=== PATIENT | male | born 1950 | race Caucasian/White ===

== ENCOUNTER 2021-01-15 19:04 | Inpatient (IN) | payer MEDICARE, OTHER ==
[~2021-01-15] VITALS: Ht 177.8 cm; Wt 70.7 kg
[2021-01-15] MEDS ORDERED: GABAPENTIN400 MG PO (20:58)
[2021-01-15] MEDS ORDERED: PROPRANOLOL HCL80 MG PO (20:59)
[2021-01-15] MEDS ORDERED: ZESTRIL 40 MG T40 MG PO (20:59)
[2021-01-15] MEDS ORDERED: AMLODIPINE BESYL5 MG PO (21:00)
[2021-01-15] MEDS ORDERED: OMEPRAZOLE40 MG PO (21:00)
[2021-01-15] MEDS ORDERED: LEVEMIR FL100 UNIT/1 SC ×2 (21:02→21:03)
[2021-01-15] MEDS ORDERED: HYDROCODON-ACE1 EAC2 PO (21:04)
[2021-01-15 22:32] LABS: HEMOGLOBIN 11.6 gm/dl (14.0-17.5); RED BLOOD COUNT 3.76 M/UL (4.20-5.50); WHITE BLOOD COUNT 6.4 K/UL (4.5-11.0)
[2021-01-16 19:46] LABS: ACINETOBACTER BAUMANNII Not Detected (Negative); CANDIDA ALBICANS Not Detected (Negative); CANDIDA KRUSEI Not Detected (Negative); CANDIDA TROPICALIS Not Detected (Negative); ENTEROCOCCUS Not Detected (Negative); ESCHERICHIA COLI Not Detected (Negative); HAEMOPHILUS INFLUENZAE Not Detected (Negative); KLEBSIELLA OXYTOCA Not Detected (Negative); KLEBSIELLA PNEUMONIAE Not Detected (Negative); KPC-CARBAPENEM-RESISTANCE GENE Not Detected (Negative); PROTEUS Not Detected (Negative); PSEUDOMONAS AERUGINOSA Not Detected (Negative); SERRATIA MARCESANS Not Detected (Negative); STAPHYLOCOCCUS AUREUS Not Detected (Negative); STREP AGALACTIAE (GROUP B) Not Detected (Negative); STREP PYOGENES (GROUP A) Not Detected (Negative); STREPTOCOCCUS Not Detected (Negative); vanA/B (VANCOMYCIN RESIST GENE Not Detected (Negative)
[2021-01-16 21:12] LABS: STAPHYLOCOCCUS DETECTED (Negative); mecA (METHICILLIN RESIST GENE DETECTED (Negative)
[2021-01-17 05:30] LABS: BUN/CREATININE RATIO 27 (0-10)
[2021-01-17 09:00] LABS: HEMOGLOBIN 11.7 gm/dl (14.0-17.5); RED BLOOD COUNT 3.84 M/UL (4.20-5.50)
[2021-01-18 05:29] LABS: BUN/CREATININE RATIO 22 (0-10)
[2021-01-18 08:13] LABS: ANTISTREPTOLYSIN O AB 35.2 IU/mL (0.0-200.0); COMPLEMENT C3, SERUM 112 mg/dL (82-167); COMPLEMENT C4, SERUM 23 mg/dL (12-38)
[2021-01-18 09:13] LABS: HBSAG SCREEN Negative (Negative); HEP B CORE AB, TOT Negative (Negative); HEP C VIRUS AB 0.2 (0.0-0.9)
[2021-01-19 03:12] LABS: HEMOGLOBIN 11.2 gm/dl (14.0-17.5); RED BLOOD COUNT 3.74 M/UL (4.20-5.50)
[2021-01-19 03:14] LABS: WHITE BLOOD COUNT 7.7 K/UL (4.5-11.0)
[2021-01-19 11:53] LABS: BUN/CREATININE RATIO 18 (0-10)
[2021-01-19 12:10] LABS: ANTI-DSDNA ANTIBODIES <1 IU/mL (0-9)
[2021-01-20 05:29] LABS: BUN/CREATININE RATIO 16 (0-10)
[2021-01-20 11:11] LABS: ATYPICAL PANCA <1:20 titer (Neg:<1:20); CYTOPLASMIC (C-ANCA) <1:20 titer (Neg:<1:20); PERINUCLEAR (P-ANCA) <1:20 titer (Neg:<1:20)
[2021-01-20 15:11] LABS: A/G RATIO 0.9 (0.7-1.7); ALBUMIN 3.3 g/dL (2.9-4.4); ALPHA-1-GLOBULIN 0.4 g/dL (0.0-0.4); ALPHA-2-GLOBULIN 1.1 g/dL (0.4-1.0); GAMMA GLOBULIN 1.6 g/dL (0.4-1.8); GLOBULIN, TOTAL 4.1 g/dL (2.2-3.9); IMMUNOGLOBULIN A, QN, SERUM 462 mg/dL (61-437); IMMUNOGLOBULIN G, QN, SERUM 1376 mg/dL (603-1613); IMMUNOGLOBULIN M, QN, SERUM 118 mg/dL (20-172); M-SPIKE Not Observed g/dL (Not Observed); PROTEIN, TOTAL, SERUM 7.4 g/dL (6.0-8.5)
[2021-01-21 03:27] LABS: BUN/CREATININE RATIO 17 (0-10)
[2021-01-21] MEDS ORDERED: AMOX TR-K CLV1 EAC4 PO (14:18)
[2021-01-21] MEDS ORDERED: INDERAL TAB 4040 MG PO (14:18)
[2021-01-21] MEDS ORDERED: PROVENTIL HFA6.7 GM INH (14:18)
== END 2021-01-21 18:54 | disposition home or self-care (01) | DRG 871 ==
LOC: CCU 19:04 → PROG CARE 19:43
PROVIDERS: Internal Medicine; Internal Medicine Nephrology; ADMIT Internal Medicine
PROC: 8E0ZXY6 Isolation (ICD-10-PCS; principal; 2021-01-15)
PROC: XW033E5 Introduction of Remdesivir Anti-infective into Peripheral Vein, Percutaneous Approach, New Technology Group 5 (ICD-10-PCS; 2021-01-16)
PROC: B24BZZ4 Ultrasonography of Heart with Aorta, Transesophageal (ICD-10-PCS; 2021-01-16)
DX: A41.89 Other specified sepsis (principal); U07.1 COVID-19; J12.82 Pneumonia due to coronavirus disease 2019; N17.0 Acute kidney failure with tubular necrosis; R65.21 Severe sepsis with septic shock; J96.01 Acute respiratory failure with hypoxia; J85.0 Gangrene and necrosis of lung; I26.90 Septic pulmonary embolism without acute cor pulmonale; J69.0 Pneumonitis due to inhalation of food and vomit; J15.9 Unspecified bacterial pneumonia; E87.2 Acidosis; N17.9 Acute kidney failure, unspecified; K92.2 Gastrointestinal hemorrhage, unspecified; E87.1 Hypo-osmolality and hyponatremia; I12.9 Hypertensive chronic kidney disease with stage 1 through stage 4 chronic kidney disease, or unspecified chronic kidney disease; I25.10 Atherosclerotic heart disease of native coronary artery without angina pectoris; E11.65 Type 2 diabetes mellitus with hyperglycemia; E83.51 Hypocalcemia; E11.22 Type 2 diabetes mellitus with diabetic chronic kidney disease; G89.29 Other chronic pain; E87.6 Hypokalemia; F11.90 Opioid use, unspecified, uncomplicated; E86.0 Dehydration; F17.210 Nicotine dependence, cigarettes, uncomplicated; N18.9 Chronic kidney disease, unspecified; E11.40 Type 2 diabetes mellitus with diabetic neuropathy, unspecified; E83.42 Hypomagnesemia; E03.9 Hypothyroidism, unspecified; Z86.16 Personal history of COVID-19; Z82.49 Family history of ischemic heart disease and other diseases of the circulatory system
CPT/HCPCS: ECHO; 36415; 71260; 80048; 80053; 80202; 81001; 82009; 82550; 82553; 82570; 82652; 82728; 82784; 82962; 83520; 83735; 83883; 83935; 83970; 84100; 84132; 84155; 84156; 84165; 84443; 84484; 85025; 86038; 86060; 86140; 86160; 86162; 86225; 86256; 86334; 86704; 86706; 86708; 86803; 87040; 87070; 87077; 87150; 87186; 87205; 87340; 89050; 93005; 93306; 94640; 94664; 94760; 97161; C9113; J0610; J0692; J2185; J3370; J3480; J7030; J7070; P9047; Q9967

== ENCOUNTER 2021-02-06 15:34 | Observation (INO) | payer MEDICARE, OTHER ==
[~2021-02-06] VITALS: Ht 177.8 cm; Wt 70.3 kg
[~2021-02-06 15:34] MED LIST: AMLODIPINE BESYL5 MG PO; AMOX TR-K CLV1 EAC4 PO; GABAPENTIN400 MG PO; HYDROCODON-ACE1 EAC2 PO; INDERAL TAB 4040 MG PO; LEVEMIR FL100 UNIT/1 SC; OMEPRAZOLE40 MG PO; PROPRANOLOL HCL80 MG PO; PROVENTIL HFA6.7 GM INH; ZESTRIL 40 MG T40 MG PO
[2021-02-06 16:04] LABS: RED BLOOD COUNT 3.87 M/UL (4.20-5.50); WHITE BLOOD COUNT 8.4 K/UL (4.5-11.0)
[2021-02-06 16:30] LABS: BUN/CREATININE RATIO 12 (0-10)
[2021-02-06] MEDS ORDERED: CYMBALTA20 MG PO (23:16)
[2021-02-06] MEDS ORDERED: LIPITOR40 MG PO (23:16)
[2021-02-06] MEDS ORDERED: GEMFIBROZIL600 MG PO (23:17)
[2021-02-06] MEDS ORDERED: HYDROCHLOROTH12.5 MG PO (23:18)
[2021-02-06] MEDS ORDERED: KENALOG 0.5% CR15 GM EXT (23:18)
[2021-02-06] MEDS ORDERED: LEVOTHYROXINE50 MC1 PO (23:19)
[2021-02-06] MEDS ORDERED: VASCEPA1 GM PO (23:19)
[2021-02-06] MEDS ORDERED: OXCARBAZEPINE300 MG PO (23:20)
--- NOTE | 2021-02-07 09:15 | NUR ---
DR. LYON NOTIFIED OF PATIENT HAVING [address] LYON TO REVIEW MED LIST. PATIENT DENIES CHEST PAIN OR SOB AT THIS TIME. V.O DR. LYON FOR ACCU CHECKS AC AND HS.
[2021-02-07] MEDS ORDERED: METFORMIN ER G500 MG PO ×2 (13:53→13:56)
[2021-02-07] MEDS ORDERED: METOPROLOL TART25 MG PO (13:53)
== END 2021-02-07 15:11 | disposition home or self-care (01) ==
LOC: ER1 15:34 → CDU 17:20 → M/S 22:46
PROVIDERS: Emergency Medicine; ADMIT Internal Medicine
DX: E11.649 Type 2 diabetes mellitus with hypoglycemia without coma (principal); I47.2 Ventricular tachycardia; U07.1 COVID-19; J12.82 Pneumonia due to coronavirus disease 2019; E11.40 Type 2 diabetes mellitus with diabetic neuropathy, unspecified; J85.0 Gangrene and necrosis of lung; I12.9 Hypertensive chronic kidney disease with stage 1 through stage 4 chronic kidney disease, or unspecified chronic kidney disease; E11.22 Type 2 diabetes mellitus with diabetic chronic kidney disease; N18.9 Chronic kidney disease, unspecified; I25.10 Atherosclerotic heart disease of native coronary artery without angina pectoris; E03.9 Hypothyroidism, unspecified; E78.5 Hyperlipidemia, unspecified; G89.4 Chronic pain syndrome; E83.51 Hypocalcemia; E83.42 Hypomagnesemia; K21.9 Gastro-esophageal reflux disease without esophagitis; Z87.891 Personal history of nicotine dependence; Z79.4 Long term (current) use of insulin; Z79.899 Other long term (current) drug therapy
CPT/HCPCS: 70450; 71045; 71046; 78580; 80053; 81001; 82550; 82553; 82962; 83036; 83874; 84484; 85025; 85379; 93005; 96374; 99285; A9540; G0378; J1650; J3475; U0002